=== PATIENT | female | born 1990 | race African-American/Black ===

== ENCOUNTER 2018-03-13 14:42 | Emergency (ER) | payer OTHER ==
[~2018-03-13] VITALS: Ht 162.6 cm; Wt 70.3 kg
[~2018-03-13 14:42] MED LIST: ATIVAN0.5 MG PO; MOBIC7.5 MG PO; NORCO 10-325 T1 EACH PO; ONDANSETRON HCL4 M2 PO; PERCOCET 5-3251 EACH PO
[2018-03-13 14:46] VITALS: BP 140/62
== END 2018-03-13 15:06 | disposition home or self-care (01) ==
LOC: ER 14:42
DX: S82.402D Unspecified fracture of shaft of left fibula, subsequent encounter for closed fracture with routine healing (principal); X58.XXXD Exposure to other specified factors, subsequent encounter

== ENCOUNTER 2019-01-23 12:00 | Emergency (ER) | payer OTHER ==
[~2019-01-23] VITALS: Ht 162.6 cm; Wt 70.8 kg
[2019-01-23 12:01] VITALS: BP 134/88
[2019-01-23] MEDS ORDERED: PENICILLIN V P500 MG PO (12:17)
[2019-01-23] MEDS ORDERED: NORCO 10-325 T1 EACH PO (12:17)
[2019-01-23] MEDS ORDERED: AMOXICILLI250 MG/51 PO (12:41)
== END 2019-01-23 12:46 | disposition home or self-care (01) ==
LOC: ER 12:00
DX: K08.89 Other specified disorders of teeth and supporting structures (principal); R51 Headache

== ENCOUNTER 2019-01-31 22:32 | Emergency (ER) | payer OTHER ==
[~2019-01-31] VITALS: Ht 162.6 cm; Wt 70.3 kg
[~2019-01-31 22:32] MED LIST changes: +AMOXICILLI250 MG/51 PO; +PENICILLIN V P500 MG PO
[2019-02-01] MEDS ORDERED: NAPROSYN500 MG PO (01:00)
[2019-02-01] MEDS ORDERED: AMOXICILLI400 MG/5 M PO (01:00)
[2019-02-01] MEDS ORDERED: TRAMADOL 50 MG50 MG PO (01:00)
[2019-02-01 01:16] VITALS: BP 126/78
== END 2019-02-01 01:17 | disposition home or self-care (01) ==
LOC: ER 22:32
DX: K04.7 Periapical abscess without sinus (principal); K02.9 Dental caries, unspecified; K01.1 Impacted teeth

== ENCOUNTER 2019-07-09 16:03 | Emergency (ER) | payer OTHER ==
[~2019-07-09] VITALS: Ht 162.6 cm; Wt 68.0 kg
[~2019-07-09 16:03] MED LIST changes: +AMOXICILLI400 MG/5 M PO; +NAPROSYN500 MG PO; +TRAMADOL 50 MG50 MG PO
[2019-07-09 16:27] LABS: URINE BILIRUBIN NEGATIVE (Negative); URINE BLOOD NEGATIVE (Negative); URINE CLARITY CLEAR; URINE COLOR YELLOW; URINE GLUCOSE-RANDOM* NEGATIVE (Negative); URINE KETONES NEGATIVE (Negative); URINE LEUKOCYTES-REFLEX NEGATIVE (Negative); URINE NITRITE-REFLEX NEGATIVE (Negative); URINE PROTEIN (DIPSTICK) NEGATIVE (Negative); URINE SPECIFIC GRAVITY 1.025 (1.005-1.035); URINE UROBILINOGEN 0.2 E.U./dl (0.2-1.0)
[2019-07-09] MEDS ORDERED: PENICILLIN250 MG/51 PO (17:56)
[2019-07-09] MEDS ORDERED: FLAGYL500 M1 PO (17:57)
[2019-07-09 18:21] VITALS: BP 125/78
== END 2019-07-09 19:43 | disposition home or self-care (01) ==
LOC: ER 16:03
PROVIDERS: Physician Assistant
DX: N76.0 Acute vaginitis (principal); B96.89 Other specified bacterial agents as the cause of diseases classified elsewhere; K04.7 Periapical abscess without sinus; F17.210 Nicotine dependence, cigarettes, uncomplicated

== ENCOUNTER 2019-07-24 22:41 | Emergency (ER) | payer OTHER ==
[~2019-07-24] VITALS: Ht 162.6 cm; Wt 65.8 kg
[~2019-07-24 22:41] MED LIST changes: +FLAGYL500 M1 PO; +PENICILLIN250 MG/51 PO
[2019-07-24 22:42] VITALS: BP 119/46
[2019-07-24] MEDS ORDERED: PENICILLIN250 MG/51 PO (22:57)
== END 2019-07-24 23:32 | disposition home or self-care (01) ==
LOC: ER 22:41
DX: K02.9 Dental caries, unspecified (principal); F17.210 Nicotine dependence, cigarettes, uncomplicated; Z88.8 Allergy status to other drugs, medicaments and biological substances